=== PATIENT | female | born 1970 | race Caucasian/White ===

== ENCOUNTER 2020-03-21 17:42 | Emergency (ER) | payer OTHER ==
[~2020-03-21] VITALS: Ht 167.6 cm; Wt 65.0 kg
[~2020-03-21 17:42] MED LIST: NO HOME MEDS
[2020-03-21 18:34] LABS: BASOPHILS % (AUTO) 0.7 % (0-1); EOSINOPHILS % (AUTO) 0.9 % (0-6); HEMATOCRIT 47.8 % (35.0-45.0); HEMOGLOBIN 16.4 g/dl (12.0-16.0); LYMPHOCYTES # (AUTO) 1.4 X10'3 (1.1-4.8); LYMPHOCYTES % (AUTO) 30.9 % (21-51); MEAN CORPUSCULAR HEMOGLOBIN 35.6 PG (27.0-31.0); MEAN CORPUSCULAR HGB CONC 34.4 g/dL (33.0-36.5); MEAN CORPUSCULAR VOLUME 103.6 FL (78-98); MEAN PLATELET VOLUME 9.1 FL (7.4-10.4); MONOCYTES # (AUTO) 0.5 X10'3 (0-0.9); NEUTROPHILS # (AUTO) 2.6 X10'3 (1.8-7.7); NEUTROPHILS % (AUTO) 56.5 % (42-75); PLATELET COUNT 126 X10'3 (140-440); RED BLOOD COUNT 4.61 X10'6 (4.20-5.60); RED CELL DISTRIBUTION WIDTH 14.3 % (11.5-14.5); WHITE BLOOD COUNT 4.7 X10'3 (4.5-11.0)
[2020-03-21 18:46] LABS: ALANINE AMINOTRANSFERASE 90 U/L (12-78); ALBUMIN 3.9 G/DL (3.4-5.0); ALBUMIN/GLOBULIN RATIO 1.1 (1.1-1.5); ALKALINE PHOSPHATASE 73 IU/L (46-116); ANION GAP 18 (8-16); ASPARTATE AMINO TRANSFERASE 263 U/L (10-37); BILIRUBIN,TOTAL 1.2 MG/DL (0.1-1.0); BLOOD UREA NITROGEN 4 MG/DL (7-18); BUN/CREATININE RATIO 8.7 (6.6-38.0); CALCIUM 9.7 MG/DL (8.5-10.1); CHLORIDE 97 MMOL/L (99-107); CREATININE 0.46 MG/DL (0.40-0.90); GLUCOSE 79 MG/DL (70-104); LIPASE 761 U/L (73-393); SODIUM 140 MMOL/L (135-145); TOTAL CARBON DIOXIDE 25.4 MMOL/L (24-32); TOTAL PROTEIN 7.5 G/DL (6.4-8.2); eGFR > 90 ML/MIN
[2020-03-21 18:47] LABS: POTASSIUM 3.1 MMOL/L (3.5-5.1)
[2020-03-21 19:32] LABS: CLARITY,URINE CLEAR (Clear); COLOR,URINE YELLOW (Yellow); GLUCOSE, URINE NEGATIVE (Neg); KETONES,URINE 15 mg/dl (Neg); LEUKOCYTE ESTERASE ,URINE NEGATIVE (Neg); NITRITES, URINE NEGATIVE (Neg); OCCULT BLOOD,URINE NEGATIVE (Neg); PH,URINE 6.5 (4.8-8.0); PROTEIN,URINE NEGATIVE (Neg); URINE HCG NEGATIVE (NEG)
[2020-03-21 19:33] LABS: UA COLLECTION TYPE CLN CATCH MIDSTREAM
[2020-03-21] MEDS ORDERED: CHLO25CA10 PO (20:30)
[2020-03-21 20:34] VITALS: BP 138/82
== END 2020-03-21 20:41 | disposition home or self-care (01) ==
LOC: ER 17:42
DX: R10.10 Upper abdominal pain, unspecified (principal); R19.7 Diarrhea, unspecified; R11.10 Vomiting, unspecified; K76.0 Fatty (change of) liver, not elsewhere classified; E78.00 Pure hypercholesterolemia, unspecified; F41.9 Anxiety disorder, unspecified; Z72.89 Other problems related to lifestyle; Z79.899 Other long term (current) drug therapy
CPT/HCPCS: 36415; 74176; 80053; 81003; 81025; 83690; 85025; 99284

== ENCOUNTER 2020-07-10 10:57 | Emergency (ER) | payer SELFPAY ==
[~2020-07-10] VITALS: Ht 172.7 cm; Wt 62.3 kg
[~2020-07-10 10:57] MED LIST changes: +CHLO25CA10 PO
[2020-07-10 11:00] VITALS: BP 115/89
[2020-07-10] MEDS ORDERED: LORazepam 1 MG tablet PO ONE (11:30)
[2020-07-10] MEDS ORDERED: CHLO25CA10 PO (11:39)
[2020-07-10] MEDS ORDERED: NICO-687 TOP (11:45)
== END 2020-07-10 13:18 | disposition home or self-care (01) ==
LOC: ER 10:57
DX: F10.20 Alcohol dependence, uncomplicated (principal); E78.00 Pure hypercholesterolemia, unspecified; F41.9 Anxiety disorder, unspecified; F17.200 Nicotine dependence, unspecified, uncomplicated; F15.90 Other stimulant use, unspecified, uncomplicated; Z79.899 Other long term (current) drug therapy; Y90.9 Presence of alcohol in blood, level not specified
CPT/HCPCS: 99283

== ENCOUNTER 2021-05-11 12:49 | Emergency (ER) | payer MEDICAID ==
[~2021-05-11] VITALS: Ht 170.2 cm; Wt 59.1 kg
[~2021-05-11 12:49] MED LIST changes: +ATOR20TA66 PO; -CHLO25CA10 PO; +ESCI-8 PO; +FERR324T4 PO; +GABA300C PO; +HYDR-3972 PO; +LANS15TA5 PO; +NICO-687 TD; -NO HOME MEDS; +folic acid tablet PO; +thiamine tablet PO
[2021-05-11 13:11] VITALS: BP 104/74
[2021-05-11 15:10] LABS: BASOPHILS % (AUTO) 0.7 % (0-1); EOSINOPHILS # (AUTO) 0.1 X10'3 (0-0.9); HEMATOCRIT 44.5 % (35.0-45.0); HEMOGLOBIN 15.4 g/dl (12.0-16.0); LYMPHOCYTES # (AUTO) 1.7 X10'3 (1.1-4.8); LYMPHOCYTES % (AUTO) 32.9 % (21-51); MEAN CORPUSCULAR HEMOGLOBIN 32.7 PG (27.0-31.0); MEAN CORPUSCULAR HGB CONC 34.6 g/dL (33.0-36.5); MEAN CORPUSCULAR VOLUME 94.7 FL (78-98); MEAN PLATELET VOLUME 9.7 FL (7.4-10.4); MONOCYTES # (AUTO) 0.5 X10'3 (0-0.9); MONOCYTES % (AUTO) 9.8 % (2-12); NEUTROPHILS # (AUTO) 2.8 X10'3 (1.8-7.7); NEUTROPHILS % (AUTO) 54.6 % (42-75); PLATELET COUNT 181 X10'3 (140-440); RED CELL DISTRIBUTION WIDTH 13.2 % (11.5-14.5)
[2021-05-11 15:21] LABS: D-DIMER 0.29 MG/L FEU (0-0.50)
[2021-05-11 15:23] LABS: GLUCOSE 77 MG/DL (70-104); POTASSIUM 4.3 MMOL/L (3.5-5.1); SODIUM 140 MMOL/L (135-145)
[2021-05-11 15:24] LABS: ALANINE AMINOTRANSFERASE 228 U/L (12-78); ALBUMIN 3.3 G/DL (3.4-5.0); ALBUMIN/GLOBULIN RATIO 0.8 (1.1-1.5); ALKALINE PHOSPHATASE 111 IU/L (46-116); ANION GAP 5 (8-16); ASPARTATE AMINO TRANSFERASE 68 U/L (10-37); BILIRUBIN,TOTAL 0.3 MG/DL (0.1-1.0); BLOOD UREA NITROGEN 13 MG/DL (7-18); CALCIUM 8.9 MG/DL (8.5-10.1); CHLORIDE 107 MMOL/L (99-107); CREATININE 0.59 MG/DL (0.40-0.90); TOTAL PROTEIN 7.2 G/DL (6.4-8.2); eGFR > 90 ML/MIN
[2021-05-11 15:29] LABS: MAGNESIUM 1.8 MG/DL (1.5-2.4)
== END 2021-05-11 15:47 | disposition home or self-care (01) ==
LOC: ER 12:50
DX: U07.1 COVID-19 (principal); R05.9 Cough, unspecified; R06.02 Shortness of breath; R11.0 Nausea; R07.89 Other chest pain; E78.00 Pure hypercholesterolemia, unspecified; F41.9 Anxiety disorder, unspecified; Z87.01 Personal history of pneumonia (recurrent); Z72.89 Other problems related to lifestyle; Z79.899 Other long term (current) drug therapy
CPT/HCPCS: 36415; 71045; 80053; 83735; 84484; 85025; 85379; 93005; 99285

== ENCOUNTER 2021-06-27 12:46 | Emergency (ER) | payer SELFPAY ==
[~2021-06-27] VITALS: Ht 170.2 cm; Wt 64.0 kg
[2021-06-27 12:46] VITALS: BP 110/54
[2021-06-27] MEDS ORDERED: acetaminophen 325mg tablet PO STA (12:57)
[2021-06-27] MEDS ORDERED: ondansetron/PF 4mg/2ml inj IV ONE (13:00)
[2021-06-27] MEDS ORDERED: normal saline 1000ML IV soln IV ONE (13:00)
[2021-06-27 13:24] LABS: BASOPHILS % (AUTO) 0.2 % (0-1); EOSINOPHILS # (AUTO) 0.1 X10'3 (0-0.9); EOSINOPHILS % (AUTO) 1.6 % (0-6); HEMATOCRIT 42.3 % (35.0-45.0); HEMOGLOBIN 14.6 g/dl (12.0-16.0); LYMPHOCYTES # (AUTO) 0.3 X10'3 (1.1-4.8); LYMPHOCYTES % (AUTO) 2.8 % (21-51); MEAN CORPUSCULAR HEMOGLOBIN 31.8 PG (27.0-31.0); MEAN CORPUSCULAR HGB CONC 34.5 g/dL (33.0-36.5); MEAN CORPUSCULAR VOLUME 92.2 FL (78-98); MEAN PLATELET VOLUME 9.4 FL (7.4-10.4); MONOCYTES # (AUTO) 0.3 X10'3 (0-0.9); MONOCYTES % (AUTO) 3.3 % (2-12); NEUTROPHILS # (AUTO) 8.8 X10'3 (1.8-7.7); NEUTROPHILS % (AUTO) 92.1 % (42-75); PLATELET COUNT 164 X10'3 (140-440); RED BLOOD COUNT 4.58 X10'6 (4.20-5.60); RED CELL DISTRIBUTION WIDTH 13.4 % (11.5-14.5); WHITE BLOOD COUNT 9.6 X10'3 (4.5-11.0)
[2021-06-27 13:39] LABS: ALANINE AMINOTRANSFERASE 90 U/L (12-78); ALBUMIN 3.2 G/DL (3.4-5.0); ALBUMIN/GLOBULIN RATIO 0.8 (1.1-1.5); ALKALINE PHOSPHATASE 129 IU/L (46-116); ANION GAP 8 (8-16); ASPARTATE AMINO TRANSFERASE 104 U/L (10-37); BILIRUBIN,TOTAL 0.3 MG/DL (0.1-1.0); BLOOD UREA NITROGEN 11 MG/DL (7-18); BUN/CREATININE RATIO 16.9 (6.6-38.0); CALCIUM 8.9 MG/DL (8.5-10.1); CHLORIDE 107 MMOL/L (99-107); CREATININE 0.65 MG/DL (0.40-0.90); GLUCOSE 98 MG/DL (70-104); LIPASE 119 U/L (73-393); POTASSIUM 3.9 MMOL/L (3.5-5.1); SODIUM 143 MMOL/L (135-145); eGFR > 90 ML/MIN
[2021-06-27] MEDS ORDERED: LORazepam 2 mg/ml vial IV ONE (14:50)
[2021-06-27] MEDS ORDERED: ONDA4TAB12 PO (14:59)
== END 2021-06-27 15:23 | disposition home or self-care (01) ==
LOC: ER 12:47
DX: J11.1 Influenza due to unidentified influenza virus with other respiratory manifestations (principal); Z20.822 Contact with and (suspected) exposure to COVID-19; R50.9 Fever, unspecified; R11.2 Nausea with vomiting, unspecified; E78.00 Pure hypercholesterolemia, unspecified; F41.9 Anxiety disorder, unspecified; Z87.01 Personal history of pneumonia (recurrent); Z72.89 Other problems related to lifestyle; Z79.899 Other long term (current) drug therapy
CPT/HCPCS: 36415; 80053; 83690; 85025; 87502; 87503; 87635; 96361; 96374; 99284; C9803; J2405; J7030; 99283

== ENCOUNTER 2023-12-25 11:05 | Emergency (ER) | payer OTHER ==
[~2023-12-25] VITALS: Ht 170.2 cm; Wt 72.2 kg
[~2023-12-25 11:05] MED LIST changes: +ONDA-243 PO
[2023-12-25 11:26] LABS: URINE HCG NEGATIVE (NEG)
[2023-12-25 11:27] LABS: BILIRUBIN,URINE NEGATIVE (Neg); CLARITY,URINE CLEAR (Clear); COLOR,URINE YELLOW (Yellow); GLUCOSE, URINE NEGATIVE (Neg); KETONES,URINE NEGATIVE (Neg); LEUKOCYTE ESTERASE ,URINE TRACE (Neg); NITRITES, URINE NEGATIVE (Neg); OCCULT BLOOD,URINE NEGATIVE (Neg); PH,URINE 6.5 (4.8-8.0); PROTEIN,URINE NEGATIVE (Neg)
[2023-12-25 11:28] LABS: UA COLLECTION TYPE CLN CATCH MIDSTREAM
[2023-12-25 11:35] LABS: RBC,URINE 0-2 /HPF (0-2)
[2023-12-25 11:36] LABS: BACTERIA,URINE 1+ /HPF (Neg); SQUAMOUS EPITHELIAL CELL,UR FEW /LPF (FEW)
[2023-12-25 12:11] LABS: BASOPHILS % (AUTO) 0.1 % (0-1); EOSINOPHILS # (AUTO) 0.1 X10'3 (0-0.9); EOSINOPHILS % (AUTO) 1.3 % (0-6); HEMATOCRIT 43.4 % (35.0-45.0); HEMOGLOBIN 14.5 g/dl (12.0-16.0); LYMPHOCYTES # (AUTO) 0.6 X10'3 (1.1-4.8); LYMPHOCYTES % (AUTO) 6.4 % (21-51); MEAN CORPUSCULAR HGB CONC 33.4 g/dL (33.0-36.5); MEAN CORPUSCULAR VOLUME 89.8 FL (78-98); MEAN PLATELET VOLUME 9.5 FL (7.4-10.4); MONOCYTES # (AUTO) 0.3 X10'3 (0-0.9); MONOCYTES % (AUTO) 3.4 % (2-12); NEUTROPHILS # (AUTO) 7.9 X10'3 (1.8-7.7); NEUTROPHILS % (AUTO) 88.8 % (42-75); PLATELET COUNT 187 X10'3 (140-440); RED BLOOD COUNT 4.83 X10'6 (4.20-5.60); RED CELL DISTRIBUTION WIDTH 13.6 % (11.5-14.5); WHITE BLOOD COUNT 8.9 X10'3 (4.5-11.0)
[2023-12-25 12:32] LABS: ALANINE AMINOTRANSFERASE 20 U/L (12-78); ALBUMIN 3.1 G/DL (3.4-5.0); ALBUMIN/GLOBULIN RATIO 0.9 (1.1-1.5); ALKALINE PHOSPHATASE 37 IU/L (46-116); ANION GAP 9 (8-16); ASPARTATE AMINO TRANSFERASE 14 U/L (10-37); BILIRUBIN,TOTAL 0.8 MG/DL (0.1-1.0); BLOOD UREA NITROGEN 8 MG/DL (7-18); CALCIUM 8.8 MG/DL (8.5-10.1); CHLORIDE 103 MMOL/L (99-107); GLUCOSE 129 MG/DL (70-104); LIPASE 13 U/L (16-77); POTASSIUM 3.6 MMOL/L (3.5-5.1); SODIUM 138 MMOL/L (135-145); TOTAL CARBON DIOXIDE 26.5 MMOL/L (24-32); TOTAL PROTEIN 6.7 G/DL (6.4-8.2); eCRCL 125 ML/MIN; eGFR > 90 ML/MIN
[2023-12-25] MEDS: normal saline 1000ml 1,000 ML IV ONE (13:59)
[2023-12-25] MEDS: acetaminophen 1,000mg/100ml IV 100 ML IV ONE (14:02)
[2023-12-25] MEDS: ondansetron/PF 4mg/2ml inj IV ONE (14:17)
[2023-12-25] MEDS: CefTRIAXone/D5W-Rocephin 1gm 50 ML IV ONE (14:17)
[2023-12-25 14:33] VITALS: TEMP 98.5
[2023-12-25] MEDS ORDERED: CEFU500T66 PO (16:28)
[2023-12-25] MEDS ORDERED: ACET325T55 PO (16:28)
[2023-12-25 16:46] VITALS: BP 97/56; PULSE 71; RESP 16; O2SAT 98
== END 2023-12-25 16:48 | disposition home or self-care (01) ==
LOC: ER 11:05
DX: N39.0 Urinary tract infection, site not specified (principal); R31.9 Hematuria, unspecified; E78.00 Pure hypercholesterolemia, unspecified; F41.9 Anxiety disorder, unspecified; F17.200 Nicotine dependence, unspecified, uncomplicated; Z98.890 Other specified postprocedural states
CPT/HCPCS: 36415; 73521; 76700; 80053; 81001; 81025; 83605; 83690; 84145; 85025; 87040; 87088; 96365; 96375; 99285; J0131; J0696; J2405; J7030